=== PATIENT | female | born 1995 | race Caucasian/White ===

== ENCOUNTER 2024-09-25 05:51 | Emergency (ER) | payer MEDICAID, SELFPAY ==
[2024-09-25] VITALS (7 sets, daily range): BP systolic 122–132; BP diastolic 69–82; PULSE 78–122; RESP 18–20; TEMP 36.7–37.2; O2SAT 97–100; BMI 35.0
--- NOTE | 2024-09-25 06:37 | PC.NURSE ---
Pt has a red rash to lower abdomen and bilateral forearms; pt reports burning and itching. Will inform provider.
--- NOTE | 2024-09-25 07:20 | PC.NURSE ---
Report received from pm nurse, patient lying in gurney, hyperactive with repetative speech, patient denies SI and HI. Patient states she has a rash on her abdomen and is driving her crazy, she also states she needs her medication for mental health, borderline personality disorder and ptsd, in which she has not taken in a few weeks because she recently got out of long-term, patient also states she is recently homeless since she got out long-term on , patient awaiting to be seen by provider in the main ER, patient given verbal reassurance. Will await further orders.
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
[2024-09-25] MEDS: DiphenhydrAMINE 25 MG CAPSULE 50 MG PO (07:55)
[2024-09-25 08:28] LABS: Collection Type, Urine Clean Catch
[2024-09-25 08:53] LABS: Acetaminophen < 2.0 mcg/mL (10.0-20.0); Alanine Aminotransferase 51 U/L (10-49); Albumin, Serum 4.3 gm/dL (3.5-5.0); Albumin/Globulin Ratio 1.4 (1.2-2.2); Alcohol, Blood Medical < 3.0 mg/dL (0-10.0); Alkaline Phosphatase 66 U/L (46-116); Anion Gap 9 (7-16); Aspartate Amino Transferase 94 U/L (0-34); BUN/Creatinine Ratio 20 Ratio (12-20); Bilirubin,Total 0.7 mg/dL (0.3-1.2); Blood Urea Nitrogen 14 mg/dL (9-23); Calcium 9.2 mg/dL (8.3-10.6); Calcium (Corrected) 9.2 mg/dL (8.5-10.1); Carbon Dioxide 25.6 mMol/L (20.0-31.0); Chloride 103 mMol/L (98-107); Creatinine (Component) 0.7 mg/dL (0.6-1.3); Globulin 3.1 gm/dL (2.3-3.5); Glucose 100 mg/dL (74-106); Osmolality,Calculated 276 (275-295); Potassium 3.1 mMol/L (3.4-5.1); Salicylate < 3.0 mg/dL; Sodium 138 mMol/L (136-145); Total Protein 7.4 gm/dL (5.7-8.2); eGFR > 60 See Note
[2024-09-25 09:02] LABS: Basophils # (Auto) 0.1 Thou/mm3 (0.0-0.2); Basophils % (Auto) 1 % (0-2.5); Eosinophils # (Auto) 0.3 Thou/mm3 (0.0-0.5); Eosinophils % (Auto) 3 % (0-10); Hematocrit 35.6 % (36.0-46.0); Hemoglobin 11.9 g/dL (12.0-16.0); Immature Granulocytes % (Auto) 0 % (0-0); Immature Granulocytes Auto 0.02 Thou/mm3 (0.00-0.00); Lymphocytes # (Auto) 1.9 Thou/mm3 (1.0-4.8); Lymphocytes % (Auto) 17 % (10-50); Mean Corpuscular HGB Conc 33.4 g/dl (31.0-37.0); Mean Corpuscular Hemoglobin 29.9 pg (25.0-35.0); Mean Corpuscular Volume 89 fL (80-100); Monocytes # (Auto) 1.1 Thou/mm3 (0.0-0.8); Monocytes % (Auto) 10 % (0-12); Neutrophils # (Auto) 7.8 Thou/mm3 (1.8-7.7); Neutrophils % (Auto) 69 % (37-80); Nucleated Red Blood Cell % 0 /100 WBC (0); Platelet Count 324 Thou/mm3 (140-440); RDW Standard Deviation 39.9 fL (36.4-46.3); Red Blood Count 3.98 Miln/mm3 (4.00-5.20); White Blood Count 11.2 Thou/mm3 (3.6-11.0)
[2024-09-25 09:10] LABS: Bilirubin,Urine Negative (Negative); Blood,Urine Negative (Negative); Clarity,Urine Turbid (Clear/Hazy); Color,Urine Yellow (Lt Yel-Yel); Glucose, Urine Negative (Negative); Ketones,Urine 1+ (Negative); Leukocyte Esterase,Urine Positive (Negative); Nitrite,Urine Negative (Negative); Protein,Urine 2+ (Neg - Trace); RBC,Urine 12 /hpf (0-3); Specific Gravity,Urine 1.037 (1.001-1.035); Squamous Epithelial Cell,Urine 1 /hpf (0-5); WBC,Urine 7 /hpf (0-5)
[2024-09-25 09:12] LABS: HCG Qualitative,Urine Negative
[2024-09-25 09:31] LABS: Amphetamine/Methamp Scrn,U Positive (Negative); Barbiturate Screen,Urine Negative (Negative); Benzodiazepines Screen,Urine Negative (Negative); Benzoylecgonine Screen, Ur Negative (Negative); Fentanyl Screen,Urine Negative (Negative); Opiate Screen,Urine Negative (Negative); THC Screen,Urine Positive (Negative)
--- NOTE | 2024-09-25 09:33 | PC.CC ---
Pt Yamileth Farah is a 29 yr old female to ED for voluntary crisis evaluation. At this time pt is pending medical clearance for eval.
--- NOTE | 2024-09-25 09:59 | PC.NURSE ---
Patient states she does not feel as itchy as before however, redness to abdomen, chest and upper jose. legs remain the same, no noticable change noted, Dr. Chaidez made aware, no new orders received.
--- NOTE | 2024-09-25 12:53 | PC.NURSE ---
Patient awake, pacing in room, fidgeting, alert and oriented x 3. Patient awaiting to be evaluated by health social work professor and made aware of plan of care, lunch tray ordered, patient has no questions or no other needs at this time.
--- NOTE | 2024-09-25 16:08 | PC.NURSE ---
Report given to Kath at [facility] for possible placement, per Kath she will check with provider and call back if they will be accepting her to their facility.
--- NOTE | 2024-09-25 16:11 | PC.NURSE ---
Updated patient on plan of care and educated her on why she is being placed on 72 hr hold, patient states she doesn't need to be placed on hold geno she has family, Will notify spring salvage worker Al that she wishes to speak with him.
--- NOTE | 2024-09-25 17:00 | PC.CC ---
1618-Call from [place] with [facility]. Pt accepted by Dr. Bearden to [facility]. RN report [phone] ext. [phone]. PCS and face sheet uploaded to [employer]. 8930-Call to [facility]. Transport ETA set for 1849. Pt packet created and attached to pts chart.
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
--- NOTE | 2024-09-25 19:05 | PC.NURSE ---
Report given to Babysitter Frank who is here to transport patient to [facility].
== END 2024-09-25 19:00 ==
PROVIDERS: Emergency Provider Emergency Medicine; PCP Family Medicine
DX: Z04.6 Encounter for general psychiatric examination, requested by authority (principal); F15.10 Other stimulant abuse, uncomplicated; R21 Rash and other nonspecific skin eruption; Z59.00 Homelessness unspecified; Z75.1 Person awaiting admission to adequate facility elsewhere
CPT/HCPCS: 36415; 80053; 80307; 80320; 80329; 81001; 81025; 85025; 96127; 99285; A9270; G0480

== ENCOUNTER 2025-07-30 16:05 | Emergency (ER) | payer MEDICAID, SELFPAY ==
[2025-07-30 16:07] VITALS: PULSE 110; RESP 18; O2SAT 98
[2025-07-30 16:08] VITALS: BP 137/76; PULSE 93; RESP 17; TEMP 37.1; O2SAT 99
[2025-07-30 16:29] VITALS: BMI 29.2
--- NOTE | 2025-07-30 16:42 | PD.EDRME ---
Rapid Medical Screening Exam RME Arrival date/time: 07/30/25 16:05 30-year-old female with no known medical history presents to the emergency room with a chief complaint of sore throat and difficulty swallowing x 1 day I have greeted and performed a focused initial assessment of this patient. A comprehensive ED assessment and evaluation of the patient, analysis of all test results, and completion of the medical decision making process will be conducted by additional ED providers. Chief Complaint: Dental/Oral/Throat Vital signs: Vital Signs Temperature 98.8 F 07/30/25 16:08 Pulse Rate 93 07/30/25 16:08 Respiratory Rate 17 07/30/25 16:08 Blood Pressure 137/76 H 07/30/25 16:08 Pulse Oximetry (%) 99 07/30/25 16:08 Oxygen Delivery Method Room Air 07/30/25 16:08 Vital signs reviewed by provider: Yes Exam: Erythemic posterior pharynx no exudates Clinical Impression: Pharyngitis/
[2025-07-30 17:24] LABS: Strep A Rapid Negative (Negative)
--- NOTE | 2025-07-30 21:29 | PD.EDDENTL ---
ED Dental RME/HPI General Chief complaint: Dental/Oral/Throat Stated complaint: THROAT PAIN Time Seen by Provider: 07/30/25 21:30 Arrival date/time: 07/30/25 16:05 RME / HPI RME / HPI Narrative: 07/30/25 16:05 30-year-old female with no known medical history presents to the emergency room with a chief complaint of sore throat and difficulty swallowing x 1 day I have greeted and performed a focused initial assessment of this patient. A comprehensive ED assessment and evaluation of the patient, analysis of all test results, and completion of the medical decision making process will be conducted by additional ED providers. Dr. Jones?s Main ED Evaluation: 30yo female presents to the ED for a chief complaint of a sore throat x 1 day. Patient states she's had difficulty swallowing due to the pain. Patient denies any cough, congestion, fever, chills, N/V, or any other associated symptoms. NKA. Related Data Home Medications ?Medication ?Instructions ?Recorded ?Confirmed hydroxyzine HCl 25 mg tablet 25 mg PO BID PRN Anxiety 08/27/21 08/27/21 sertraline 50 mg tablet (Zoloft) 50 mg PO QDAY 08/27/21 08/27/21 Previous Rx's ?Medication ?Instructions ?Recorded albuterol sulfate 90 mcg/actuation 1 inh inhalation QID #6.7 grams 08/30/21 aerosol inhaler acetaminophen 500 mg capsule 1,000 mg (2 x 500 mg) PO Q8HR PRN 10/02/21 pain #60 caps diclofenac sodium 75 mg 75 mg PO BID PRN pain #60 tabs 11/21/21 tablet,delayed release benzonatate 200 mg capsule 200 mg PO TID PRN cough #20 caps 01/20/22 ibuprofen 600 mg tablet 600 mg PO TID PRN pain #30 tabs 01/20/22 ondansetron 4 mg disintegrating 4 mg PO Q8H #14 tabs 01/21/22 tablet quetiapine 50 mg tablet (Seroquel) 50 mg PO QHSPRN PRN withdrawal 05/15/22 symptoms #10 tabs lorazepam 1 mg tablet (Ativan) 1 mg PO BID PRN agitation #10 tabs 07/09/22 ibuprofen 800 mg tablet 800 mg PO TID PRN pain #30 tabs 07/29/22 sulfamethoxazole 800 1 tab PO BID #14 tabs 11/03/22 mg-trimethoprim 160 mg tablet (Bactrim DS) tramadol 50 mg tablet 50 mg PO TID PRN pain #20 tabs 11/21/22 ibuprofen 600 mg tablet 600 mg PO Q8H PRN pain #14 tabs 01/05/23 doxycycline hyclate 100 mg tablet 100 mg PO BID #14 tabs 03/05/23 diphenhydramine HCl 25 mg capsule 25 mg PO TID PRN allergic reaction 06/06/23 (Allergy Medication) #30 caps cyclobenzaprine 5 mg tablet 5 mg PO TID PRN muscle spasm #30 12/28/23 tabs ibuprofen 600 mg tablet 600 mg PO Q6H #30 tabs 12/28/23 Allergies Allergy/AdvReac Type Severity Reaction Status Date / Time No Known Allergies Allergy Verified 05/11/24 17:30 Review of Systems Review of Systems Systems Reviewed: All systems reviewed, normal except as documented Past Medical History Past Medical History NEUROLOGIC: Negative Neurological Disorders CARDIAC: Negative Cardiac Disorders or Congestive Heart Failure RESPIRATORY: Negative Chronic Obstructive Pulmonary Disease (COPD) GASTROINTESTINAL: Negative Gastrointestinal Disorders, Hepatitis or Colorectal Cancer GENITOURINARY: Positive Genitourinary Disorders; Negative Renal Disease or Prostate Cancer REPRODUCTIVE: Positive Previous Pregnancies; Negative Breast Cancer or Testicular Cancer MUSCULOSKELETAL: Negative Musculoskeletal Disorders or Bone Cancer ENDOCRINE: Negative Endocrine Disorders, Diabetes Mellitus Type 1 or Diabetes Mellitus Type 2 HEMATOLOGIC: Negative Blood Disorders PSYCHO/SOCIAL: Positive Recreational Drug Use, Bipolar Disorder, Depression, Anxiety and Post Traumatic Stress Disorder OTHER HISTORY: Negative Hospitalization, Autoimmune Disease, Down Syndrome, Developmental Delay, Shingles, Falls, Blood Transfusions, Blood Transfusion Reaction, Anesthesia Reactions, Organ Transplant, Chemotherapy, Radiation Therapy, Hyperbaric Therapy, MRSA, VRSA, Vancomycin-Resistant Enterococci, Human Immunodeficiency Virus (HIV), Chicken Pox, Measles, Mumps, Rubella ([place]cuadorean Measles), Pertussis, Clostridium Difficile, Breast Cancer, Cervical Cancer, Colorectal Cancer, Lung Cancer, Ovarian Cancer, Prostate Cancer or Testicular Cancer Family History FAMILY HISTORY: Positive Family Respiratory Disorders, Family Cancer and Family Surgery; Negative Family Psychiatric Problems, Family Gastrointestinal Problems or Family Anesthesia Reaction Surgical History SURGICAL: Negative Section or Organ Transplant Social History SMOKING STATUS: Current some day smoker ED Exam Narrative Physical exam: Generally patient is alert in no respiratory distress but highly anxious, neck shows no stridor, oropharynx is moist and clear without exudate. Tonsils are nonswollen. Uvula is midline. Heart regular rate and rhythm, lungs clear to auscultation equal bilaterally Course Quality Measures none Orders Category Date Time Status Strep A Rapid Stat Lab 07/30/25 16:41 Completed Vital Signs Vital signs: Vital Signs Temperature 98.8 F 07/30/25 16:08 Pulse Rate 93 07/30/25 16:08 Respiratory Rate 17 07/30/25 16:08 Blood Pressure 137/76 H 07/30/25 16:08 Pulse Oximetry (%) 99 07/30/25 16:08 Oxygen Delivery Method Room Air 07/30/25 16:08 Dental / Oral MDM Narrative MDM Narrative:: Scribe Attestation: 07/30/25 - Meron Grubbs am scribing for and in the presence of Dr. Jones. Rapid strep is negative. Patient has a viral pharyngitis. She may take [id number] sore throat lozenges as needed for pain. Patient data External records reviewed:: [facility] previous records (Per chart review, patient was seen here on 09/25/24 for abnormal behavior.) Clinical information provided by:: patient Social determinants that could affect healthcare access:: mental health Patient has the following chronic illnesses:: bipolar disorder How is presenting disease/condition affected by chronic disease/condition?: uneffected by Evaluation data The following diagnostics were reviewed and interpreted by me:: lab results Lab and/or radiology exams considered but not ordered:: none Interpretation Summary: See [facility] Medications / Prescriptions Medications or Prescriptions considered but not ordered:: none Medication administrations:: see above, if any Consultations Consultation(s) initiated? (list below): No Diagnosis Dental Differential Diagnosis: other (See MDM) Most likely diagnosis given after review of the tests above:: see clinical impression below Admission Indicated Admission indicated?: not indicated Admission Request Was there a request for admission?: No Disposition Plan Disposition Plan: Discharge Discharge Attestation Discharge Attestation: The patient and all family members were given an opportunity to ask questions and understood the discharge instructions. Discharge instructions specifically effects, indications for sooner follow up or return to the emergency department, and the expected course of current diagnosis. Patient condition: Stable Discharge Plan Plan Patient Disposition: HOME (Self Care) Prescriptions/Referrals Prescriptions/Med Rec: No Action albuterol sulfate 90 mcg/actuation HFA aerosol inhaler 1 inh inhalation QID Qty: 6.7 0RF diclofenac sodium 75 mg tablet,delayed release (DR/EC) 75 mg PO BID PRN (Reason: pain) Qty: 60 0RF hydroxyzine HCl 25 mg Tablet 25 mg PO BID PRN (Reason: Anxiety) sertraline [Zoloft] 50 mg Tablet 50 mg PO QDAY acetaminophen 500 mg capsule 1,000 mg PO Q8HR PRN (Reason: pain) Qty: 60 0RF ibuprofen 600 mg tablet 600 mg PO TID PRN (Reason: pain) Qty: 30 0RF benzonatate 200 mg capsule 200 mg PO TID PRN (Reason: cough) Qty: 20 0RF ondansetron 4 mg tablet,disintegrating 4 mg PO Q8H Qty: 14 0RF quetiapine [Seroquel] 50 mg tablet 50 mg PO QHSPRN PRN (Reason: withdrawal symptoms) Qty: 10 0RF lorazepam [Ativan] 1 mg tablet 1 mg PO BID PRN (Reason: agitation) Qty: 10 0RF ibuprofen 800 mg tablet 800 mg PO TID PRN (Reason: pain) Qty: 30 0RF diphenhydramine HCl [Allergy Medication] 25 mg capsule 25 mg PO TID PRN (Reason: allergic reaction) Qty: 30 0RF sulfamethoxazole-trimethoprim [Bactrim DS] 800-160 mg tablet 1 tab PO BID Qty: 14 0RF tramadol 50 mg tablet 50 mg PO TID PRN (Reason: pain) Qty: 20 0RF ibuprofen 600 mg tablet 600 mg PO Q8H PRN (Reason: pain) Qty: 14 0RF doxycycline hyclate 100 mg tablet 100 mg PO BID Qty: 14 0RF ibuprofen 600 mg tablet 600 mg PO Q6H Qty: 30 0RF cyclobenzaprine 5 mg tablet 5 mg PO TID PRN (Reason: muscle spasm) Qty: 30 0RF Referrals: Fransico Hall MD [Primary Care Provider, Family Practice] - In 1 week Problem List Clinical Impression: Viral pharyngitis Patient/Caregiver Discharge Instructions Education Materials: Self-Care for Sore Throats Additional Instructions: There is no indication for antibiotic therapy for viral pharyngitis. You may use [id number] sore throat lozenges as needed for pain. You may also use Tylenol and/or ibuprofen as needed for pain. Print Language: Romansh Stand Alone Forms: [facility] Award Info., Patient Portal Info Letter
[2025-07-30 21:35] VITALS: BP 135/84; PULSE 102; RESP 17; TEMP 37.3; O2SAT 96
[2025-07-30] MEDS: KETOROLAC INJ 60 MG/2 ML VIAL IM (22:35)
== END 2025-07-30 22:36 | disposition home or self-care (01) ==
PROVIDERS: Nurse Practitioner Family; Emergency Provider Emergency Medicine; PCP Family Medicine
DX: J02.8 Acute pharyngitis due to other specified organisms (principal); B97.89 Other viral agents as the cause of diseases classified elsewhere
CPT/HCPCS: 87651; 96372; 99282; J1885